=== PATIENT | female | born 1935 | race Hispanic/Latino ===

== ENCOUNTER 2017-11-09 22:40 | Emergency (ER) | payer OTHER ==
[~2017-11-09] VITALS: Ht 165.1 cm; Wt 63.0 kg
--- OUTSIDE RECORDS SUMMARY | 2017-11-09 22:43 | XMS REPORT ---
Author Author [facility] Address Unknown Phone Unavailable Care Team Providers Care Multiple Cut Off Saw Operator Name Role Phone QIANA GALINDO Unavailable Unavailable PAIGE HUANG Unavailable Unavailable Problems This patient has no known problems. Allergies, Adverse Reactions, Alerts This patient has no known allergies or adverse reactions. Medications This patient has no known medications. Results Test Description Test Time Test Comments Text Results Atomic Results Result Comments URINE CULTURE 2017-07-16 11:52:00 CULTURE (BEAKER) (test fwcz=0671) Amikacin (test code=1) Ampicillin + Sulbactam (test code=6) Aztreonam (test code=32) Cefepime (test code=51) Cefoxitin (test code=68) Ceftazidime (test code=27) Ceftriaxone (test code=52) Ertapenem (test code=38) Gentamicin (test code=18) Levofloxacin (test code=22) Meropenem (test code=34) Nitrofurantoin (test code=23) Piperacillin + Tazobactam (test code=29) Tetracycline (test code=2) Tobramycin (test code=25) Trimethoprim + Sulfamethoxazole (test code=47) CULTURE (BEAKER) (test evia=4930) 40-49,000 col/mL Escherichia coli CULTURE (BEAKER) (test uncs=6815) <10,000 col/mL Escherichia coliof a second type <10,000 col/mL GRAM NEGATIVE KAMERON OF A SECOND TYPEPOCT-GLUCOSE [id number] 11 :41:00* Test Item Value Reference Range Comments POC-GLUCOSE METER (BEAKER) (test nxwy=7864) 298 mg/dL 70-110 TESTED AT [facility] [place] [address] POCT-GLUCOSE [id number] 06:06:00* Test Item Value Reference Range Comments POC-GLUCOSE METER (BEAKER) (test fqjy=7987) 95 mg/dL 70-110 TESTED AT [facility] [place] [address] LIPID [id number] 03:38:00* Test Item Value Reference Range Comments TRIGLYCERIDES (BEAKER) (test sgjp=593) 117 mg/dL Specimen moderately hemolyzed CHOLESTEROL (BEAKER) (test dnlo=770) 145 mg/dL Specimen moderately hemolyzed HDL CHOLESTEROL (BEAKER) (test htte=201) 31 mg/dL LDL CHOLESTEROL CALCULATED (BEAKER) (test pwtp=564) 91 mg/dL Triglyceride Reference Range: Low Risk <150 Borderline 150-199 High Risk 200-499 Very High Risk >=500Cholesterol Reference Range: Low Risk <200 Borderline 200-239 High Risk >240HDL Cholesterol Reference Range: Low Risk >=60 High Risk <40LDL Cholesterol Reference Range: Optimal <100 Near Optimal 100-129 Borderline 130-159 High 160-189 Very High >=190 FASTING FOR 12 [id number] 03:37:00* Test Item Value Reference Range Comments MAGNESIUM (BEAKER) (test iavk=980) 1.9 mg/dL 1.5-3.0 Specimen moderately hemolyzed FASTING FOR 12 [id number] 03:37:00* Test Item Value Reference Range Comments PHOSPHORUS (BEAKER) (test fkdm=593) 3.6 mg/dL 2.5-4.5 Specimen moderately hemolyzed FASTING FOR 12 HOURSBASIC METABOLIC [id number] 03:37:00* Test Item Value Reference Range Comments SODIUM (BEAKER) (test zusu=919) 136 meq/L 135-148 POTASSIUM (BEAKER) (test xukn=330) 4.2 meq/L 3.6-5.5 Specimen moderately hemolyzed CHLORIDE (BEAKER) (test tmve=021) 105 meq/L 98-106 CO2 (BEAKER) (test bdgy=113) 21 meq/L 20-29 BLOOD UREA NITROGEN (BEAKER) (test xbrm=678) 13 mg/dL 10-26 CREATININE (BEAKER) (test pltg=103) 0.87 mg/dL 0.50-1.20 Specimen moderately hemolyzed GLUCOSE RANDOM (BEAKER) (test ogzd=552) 98 mg/dL 70-110 CALCIUM (BEAKER) (test pnnt=306) 9.2 mg/dL 8.5-10.5 EGFR (BEAKER) (test yrqe=8730) 63 mL/min/1.73 sq m ESTIMATED GFR IS NOT ACCURATE CREATININE CLEARANCE IN PREDICTING GLOMERULAR FILTRATION RATE. ESTIMATED GFR IS NOT APPLICABLE FOR DIALYSIS PATIENTS. FASTING FOR 12 HOURSCREATINE KINASE (CK), TOTAL AND [id number] 03:35:00* Test Item Value Reference Range Comments CREATINE KINASE TOTAL (BEAKER) (test hjcc=957) 43 U/L 25-235 CREATINE KINASE-MB (BEAKER) (test bofc=326) 0.8 ng/mL 0.0-4.9 CREATINE KINASE-MB INDEX (BEAKER) (test yosp=497) 1.9 % CK-MB Reference Range:<5 Normal5-10 Borderline>10 AbnormalCoordinate with ED Blood Draw (8 hrs after that for first)TROPONIN [id number] 03:35:00* Test Item Value Reference Range Comments TROPONIN I (BEAKER) (test vxct=450) 0.02 ng/mL 0.00-0.15 Troponin I (TnI) levels must be interpreted in the context of the presenting symptoms and the clinical findings. Elevated TnI levels indicate myocardial damage, but are not specific for ischemic heart disease. Elevated TnI levels are seen in patients with other cardiac conditions (including myocarditis and congestive heart failure), and slight TnI elevations occur in patients with other conditions, including sepsis, renal failure, acidosis, acute neurological disease, and persistent tachyarrhythmia.Coordinate with ED Blood Draw (8 hrs after that for first)CBC W/PLT COUNT & AUTO [id number] 03:07:00* Test Item Value Reference Range Comments WHITE BLOOD CELL COUNT (BEAKER) (test bihh=991) 7.0 K/ L 4.0-10.0 RED BLOOD CELL COUNT (BEAKER) (test cels=765) 3.22 M/ L 4.00-5.00 HEMOGLOBIN (BEAKER) (test zidy=810) 10.0 GM/DL 12.0-15.0 HEMATOCRIT (BEAKER) (test oayz=805) 28.7 % 36.0-45.0 MEAN CORPUSCULAR VOLUME (BEAKER) (test dozr=095) 89.1 fL 82.0-99.0 MEAN CORPUSCULAR HEMOGLOBIN (BEAKER) (test ajqq=214) 31.1 pg 27.0-33.0 MEAN CORPUSCULAR HEMOGLOBIN CONC (BEAKER) (test snpu=861) 34.8 GM/DL 32.0- 36.0 RED CELL DISTRIBUTION WIDTH (BEAKER) (test ghox=742) 13.1 % 10.3-14.2 PLATELET COUNT (BEAKER) (test ckvh=249) 293 K/CU MM 150-430 MEAN PLATELET VOLUME (BEAKER) (test ngly=618) 10.5 fL 6.5-10.5 NUCLEATED RED BLOOD CELLS (BEAKER) (test bvsm=823) 0 /100 WBC 0-0 NEUTROPHILS RELATIVE PERCENT (BEAKER) (test xqxz=294) 54 % LYMPHOCYTES RELATIVE PERCENT (BEAKER) (test ksiv=784) 32 % MONOCYTES RELATIVE PERCENT (BEAKER) (test lktw=852) 9 % EOSINOPHILS RELATIVE PERCENT (BEAKER) (test psxq=569) 4 % BASOPHILS RELATIVE PERCENT (BEAKER) (test gmje=582) 0 % NEUTROPHILS ABSOLUTE COUNT (BEAKER) (test kikr=777) 3.80 K/ L 1.80-8.00 LYMPHOCYTES ABSOLUTE COUNT (BEAKER) (test ztqr=900) 2.22 K/ L 1.48-4.50 MONOCYTES ABSOLUTE COUNT (BEAKER) (test wfys=970) 0.63 K/ L 0.00-1.30 EOSINOPHILS ABSOLUTE COUNT (BEAKER) (test gnle=595) 0.31 K/ L 0.00-0.50 BASOPHILS ABSOLUTE COUNT (BEAKER) (test dpfk=636) 0.03 K/ L 0.00-0.20 POCT-GLUCOSE [id number] 22:29:00* Test Item Value Reference Range Comments POC-GLUCOSE METER (BEAKER) (test njsk=7415) 199 mg/dL 70-110 TESTED AT [facility] [address] [place] [address] CREATINE KINASE (CK), TOTAL AND [id number] 20:58:00* Test Item Value Reference Range Comments CREATINE KINASE TOTAL (BEAKER) (test stvu=345) 52 U/L 25-235 CREATINE KINASE-MB (BEAKER) (test tsrb=314) 0.9 ng/mL 0.0-4.9 CREATINE KINASE-MB INDEX (BEAKER) (test uiqy=138) 1.7 % CK-MB Reference Range:<5 Normal5-10 Borderline>10 AbnormalCoordinate with ED Blood Draw (8 hrs after that for first)TROPONIN [id number] 20:58:00* Test Item Value Reference Range Comments TROPONIN I (BEAKER) (test wmcu=245) 0.01 ng/mL 0.00-0.15 Troponin I (TnI) levels must be interpreted in the context of the presenting symptoms and the clinical findings. Elevated TnI levels indicate myocardial damage, but are not specific for ischemic heart disease. Elevated TnI levels are seen in patients with other cardiac conditions (including myocarditis and congestive heart failure), and slight TnI elevations occur in patients with other conditions, including sepsis, renal failure, acidosis, acute neurological disease, and persistent tachyarrhythmia.Coordinate with ED Blood Draw (8 hrs after that for first)POCT-GLUCOSE [id number] 16:47:00* Test Item Value Reference Range Comments POC-GLUCOSE METER (BEAKER) (test bnfz=9617) 234 mg/dL 70-110 TESTED AT [facility] [place] [address] CREATINE KINASE (CK), TOTAL AND [id number] 15:51:00* Test Item Value Reference Range Comments CREATINE KINASE TOTAL (BEAKER) (test vgjy=431) 59 U/L 25-235 CREATINE KINASE-MB (BEAKER) (test thmq=949) 1.2 ng/mL 0.0-4.9 CREATINE KINASE-MB INDEX (BEAKER) (test mkxz=625) 2.0 % CK-MB Reference Range:<5 Normal5-10 Borderline>10 AbnormalCoordinate with ED Blood Draw (8 hrs after that for first)TROPONIN [id number] 15:51:00* Test Item Value Reference Range Comments TROPONIN I (BEAKER) (test vxqj=069) 0.02 ng/mL 0.00-0.15 Troponin I (TnI) levels must be interpreted in the context of the presenting symptoms and the clinical findings. Elevated TnI levels indicate myocardial damage, but are not specific for ischemic heart disease. Elevated TnI levels are seen in patients with other cardiac conditions (including myocarditis and congestive heart failure), and slight TnI elevations occur in patients with other conditions, including sepsis, renal failure, acidosis, acute neurological disease, and persistent tachyarrhythmia.Coordinate with ED Blood Draw (8 hrs after that for first)POCT-GLUCOSE [id number] 11:30:00* Test Item Value Reference Range Comments POC-GLUCOSE METER (BEAKER) (test yanc=6264) 189 mg/dL 70-110 TESTED AT [facility] [place] [address] URINALYSIS W/ [id number] 10:21:00* Test Item Value Reference Range Comments COLOR (BEAKER) (test ushj=635) Yellow CLARITY (BEAKER) (test iivb=387) Clear SPECIFIC GRAVITY UA (BEAKER) (test bqbi=303) <= 1.001-1.035 PH UA (BEAKER) (test vddj=986) 6.5 5.0-8.0 PROTEIN UA (BEAKER) (test wyfs=482) Negative Negative GLUCOSE UA (BEAKER) (test ktzu=716) Negative Negative KETONES UA (BEAKER) (test zrwc=516) Negative Negative BILIRUBIN UA (BEAKER) (test gmxm=905) Negative Negative BLOOD UA (BEAKER) (test xxfn=721) Negative Negative NITRITE UA (BEAKER) (test babj=071) Negative Negative LEUKOCYTE ESTERASE UA (BEAKER) (test ofxz=820) Negative Negative UROBILINOGEN UA (BEAKER) (test dkbm=756) 0.2 mg/dL 0.2-1.0 BACTERIA (BEAKER) (test uduo=053) Occasional RBC UA-MANUAL (BEAKER) (test rbny=8034) None Seen /HPF WBC UA-MANUAL (BEAKER) (test aubs=9425) <5 /HPF SQUAMOUS EPITHELIAL MANUAL (BEAKER) (test oxes=2687) <5 /HPF SOURCE(BEAKER) (test krds=4196) [id number] 08:57:00* Test Item Value Reference Range Comments PROTIME (BEAKER) (test iorj=240) 10.4 seconds 9.8-12.0 INR (BEAKER) (test pkro=205) 1.0 <=5.9 PARTIAL THROMBOPLASTIN TIME (BEAKER) (test dclq=716) 29.6 seconds 25.8-34.5 RECOMMENDED COUMADIN/WARFARIN INR THERAPY RANGESSTANDARD DOSE: 2.0 - 3.0 Includes: PROPHYLAXIS for venous thrombosis, systemic embolization; TREATMENT for venous thrombosis and/or pulmonary embolus.HIGH RISK: Target INR is 2.5-3.5 for patients with mechanical heart valves.CREATINE KINASE (CK), TOTAL AND [id number] 08:54:00* Test Item Value Reference Range Comments CREATINE KINASE TOTAL (BEAKER) (test vkjb=808) 88 U/L 25-235 CREATINE KINASE-MB (BEAKER) (test cekn=252) 1.3 ng/mL 0.0-4.9 CREATINE KINASE-MB INDEX (BEAKER) (test mvvm=258) 1.5 % CK-MB Reference Range:<5 Normal5-10 Borderline>10 AbnormalTROPONIN [id number] 08:54:00* Test Item Value Reference Range Comments TROPONIN I (BEAKER) (test wbsu=182) 0.01 ng/mL 0.00-0.15 Troponin I (TnI) levels must be interpreted in the context of the presenting symptoms and the clinical findings. Elevated TnI levels indicate myocardial damage, but are not specific for ischemic heart disease. Elevated TnI levels are seen in patients with other cardiac conditions (including myocarditis and congestive heart failure), and slight TnI elevations occur in patients with other conditions, including sepsis, renal failure, acidosis, acute neurological disease, and persistent tachyarrhythmia.[id number] 08:48:00* Test Item Value Reference Range Comments PHOSPHORUS (BEAKER) (test wocb=168) 2.0 mg/dL 2.5-4.5 [id number] 08:48:00* Test Item Value Reference Range Comments MAGNESIUM (BEAKER) (test slwv=806) 1.6 mg/dL 1.5-3.0 COMPREHENSIVE METABOLIC [id number] 08:48:00* Test Item Value Reference Range Comments TOTAL PROTEIN (BEAKER) (test furv=952) 7.4 gm/dL 6.0-8.5 ALBUMIN (BEAKER) (test cbcm=7937) 3.6 g/dL 3.5-5.0 ALKALINE PHOSPHATASE (BEAKER) (test yocg=080) 71 U/L 30-115 BILIRUBIN TOTAL (BEAKER) (test luhy=004) 0.5 mg/dL 0.1-1.2 SODIUM (BEAKER) (test mhfk=271) 135 meq/L 135-148 POTASSIUM (BEAKER) (test mfao=650) 3.5 meq/L 3.6-5.5 CHLORIDE (BEAKER) (test vece=753) 101 meq/L 98-106 CO2 (BEAKER) (test ygog=114) 23 meq/L 20-29 BLOOD UREA NITROGEN (BEAKER) (test qtrh=746) 8 mg/dL 10-26 CREATININE (BEAKER) (test jjko=264) 0.89 mg/dL 0.50-1.20 GLUCOSE RANDOM (BEAKER) (test zuei=874) 201 mg/dL 70-110 CALCIUM (BEAKER) (test xqjy=033) 9.4 mg/dL 8.5-10.5 AST (SGOT) (BEAKER) (test eixp=446) 14 U/L 5-40 ALT (SGPT) (BEAKER) (test oxbd=809) 15 U/L 5-50 EGFR (BEAKER) (test ywal=0186) 61 mL/min/1.73 sq m ESTIMATED GFR IS NOT ACCURATE CREATININE CLEARANCE IN PREDICTING GLOMERULAR FILTRATION RATE. ESTIMATED GFR IS NOT APPLICABLE FOR DIALYSIS PATIENTS. CBC W/PLT COUNT & AUTO [id number] 08:30:00* Test Item Value Reference Range Comments WHITE BLOOD CELL COUNT (BEAKER) (test zaws=033) 8.1 K/ L 4.0-10.0 RED BLOOD CELL COUNT (BEAKER) (test qmct=445) 3.56 M/ L 4.00-5.00 HEMOGLOBIN (BEAKER) (test ptqt=171) 11.0 GM/DL 12.0-15.0 HEMATOCRIT (BEAKER) (test fbxw=149) 31.5 % 36.0-45.0 MEAN CORPUSCULAR VOLUME (BEAKER) (test ovwu=310) 88.5 fL 82.0-99.0 MEAN CORPUSCULAR HEMOGLOBIN (BEAKER) (test usrn=642) 30.9 pg 27.0-33.0 MEAN CORPUSCULAR HEMOGLOBIN CONC (BEAKER) (test glnl=537) 34.9 GM/DL 32.0- 36.0 RED CELL DISTRIBUTION WIDTH (BEAKER) (test xznn=316) 13.1 % 10.3-14.2 PLATELET COUNT (BEAKER) (test fxub=752) 282 K/CU MM 150-430 MEAN PLATELET VOLUME (BEAKER) (test louw=224) 11.0 fL 6.5-10.5 NUCLEATED RED BLOOD CELLS (BEAKER) (test phmk=363) 0 /100 WBC 0-0 NEUTROPHILS RELATIVE PERCENT (BEAKER) (test xbel=651) 62 % LYMPHOCYTES RELATIVE PERCENT (BEAKER) (test tuod=181) 22 % MONOCYTES RELATIVE PERCENT (BEAKER) (test ksic=037) 10 % EOSINOPHILS RELATIVE PERCENT (BEAKER) (test vqai=486) 6 % BASOPHILS RELATIVE PERCENT (BEAKER) (test unlf=839) 1 % NEUTROPHILS ABSOLUTE COUNT (BEAKER) (test fsed=406) 5.05 K/ L 1.80-8.00 LYMPHOCYTES ABSOLUTE COUNT (BEAKER) (test jxdj=280) 1.79 K/ L 1.48-4.50 MONOCYTES ABSOLUTE COUNT (BEAKER) (test xpqs=090) 0.77 K/ L 0.00-1.30 EOSINOPHILS ABSOLUTE COUNT (BEAKER) (test pisk=468) 0.45 K/ L 0.00-0.50 BASOPHILS ABSOLUTE COUNT (BEAKER) (test srit=642) 0.04 K/ L 0.00-0.20 RAD, CHEST, 1 VIEW, NON [id number] 08:29:00Reason for exam:->CHEST PAINReason for exam:->ATRIAL FIBRILLATIONShould this be performed at the bedside ?->YesFINAL REPORT Chest, one view HISTORY: Chest pain COMPARISON: 01/08/2017 DISCUSSION: Unchanged bilateral interstitial prominence. No new focal consolidation. Cardiomediastinal silhouette is unremarkable. Mildly ectatic and tortuous thoracic aorta. Atherosclerotic calcifications in the aortic arch. No acute osseous abnormality. No large pleural effusion or pneumothorax. Degenerative changes in the thoracic spine. IMPRESSION: No acute cardiopulmonary abnormality. Signed: Saroj Duvall MDReport Verified Date/Time: 07/13/2017 08:29:54 Reading Location: [address] Body Reading Room TINE KINASE (CK), TOTAL AND [id number] 17:01:00* Test Item Value Reference Range Comments CREATINE KINASE TOTAL (BEAKER) (test oisu=220) 60 U/L 25-235 CREATINE KINASE-MB (BEAKER) (test vsqc=641) 1.3 ng/mL 0.0-4.9 CREATINE KINASE-MB INDEX (BEAKER) (test vjys=639) 2.2 % CK-MB Reference Range:<5 Normal5-10 Borderline>10 AbnormalTROPONIN [id number] 17:01:00* Test Item Value Reference Range Comments TROPONIN I (BEAKER) (test vvkp=886) 0.02 ng/mL 0.00-0.15 Troponin I (TnI) levels must be interpreted in the context of the presenting symptoms and the clinical findings. Elevated TnI levels indicate myocardial damage, but are not specific for ischemic heart disease. Elevated TnI levels are seen in patients with other cardiac conditions (including myocarditis and congestive heart failure), and slight TnI elevations occur in patients with other conditions, including sepsis, renal failure, acidosis, acute neurological disease, and persistent tachyarrhythmia.B-TYPE NATRIURETIC FACTOR (BNP) 16:59:00* Test Item Value Reference Range Comments B-TYPE NATRIURETIC PEPTIDE (BEAKER) (test xark=965) 106 pg/mL 0-100 [id number] 16:53:00* Test Item Value Reference Range Comments LIPASE (BEAKER) (test hjhw=501) 9 U/L 6-51 BASIC METABOLIC [id number] 16:53:00* Test Item Value Reference Range Comments SODIUM (BEAKER) (test ydjp=324) 126 meq/L 135-148 POTASSIUM (BEAKER) (test brky=814) 4.9 meq/L 3.6-5.5 CHLORIDE (BEAKER) (test jhbi=701) 97 meq/L 98-106 CO2 (BEAKER) (test ryae=646) 20 meq/L 20-29 BLOOD UREA NITROGEN (BEAKER) (test speb=689) 16 mg/dL 10-26 CREATININE (BEAKER) (test rhip=588) 1.15 mg/dL 0.50-1.20 GLUCOSE RANDOM (BEAKER) (test svgj=974) 154 mg/dL 70-110 CALCIUM (BEAKER) (test oqkf=619) 9.1 mg/dL 8.5-10.5 EGFR (BEAKER) (test gmrh=7315) 45 mL/min/1.73 sq m ESTIMATED GFR IS NOT ACCURATE CREATININE CLEARANCE IN PREDICTING GLOMERULAR FILTRATION RATE. ESTIMATED GFR IS NOT APPLICABLE FOR DIALYSIS PATIENTS. HEPATIC FUNCTION [id number] 16:53:00* Test Item Value Reference Range Comments TOTAL PROTEIN (BEAKER) (test frta=366) 7.9 gm/dL 6.0-8.5 ALBUMIN (BEAKER) (test ebio=0957) 4.5 g/dL 3.5-5.0 BILIRUBIN TOTAL (BEAKER) (test tjkq=224) 0.6 mg/dL 0.1-1.2 BILIRUBIN DIRECT (BEAKER) (test lgec=204) 0.2 mg/dL 0.0-0.4 ALKALINE PHOSPHATASE (BEAKER) (test qzdp=167) 49 U/L 30-115 AST (SGOT) (BEAKER) (test phbb=274) 21 U/L 5-40 ALT (SGPT) (BEAKER) (test mgfx=825) 20 U/L 5-50 CBC W/PLT COUNT & AUTO [id number] 16:41:00* Test Item Value Reference Range Comments WHITE BLOOD CELL COUNT (BEAKER) (test ndjy=524) 8.2 K/ L 4.0-10.0 RED BLOOD CELL COUNT (BEAKER) (test kuen=248) 3.83 M/ L 4.00-5.00 HEMOGLOBIN (BEAKER) (test qbjn=453) 11.7 GM/DL 12.0-15.0 HEMATOCRIT (BEAKER) (test ahmy=035) 33.6 % 36.0-45.0 MEAN CORPUSCULAR VOLUME (BEAKER) (test bjek=742) 87.7 fL 82.0-99.0 MEAN CORPUSCULAR HEMOGLOBIN (BEAKER) (test bfok=225) 30.5 pg 27.0-33.0 MEAN CORPUSCULAR HEMOGLOBIN CONC (BEAKER) (test ecnr=093) 34.8 GM/DL 32.0- 36.0 RED CELL DISTRIBUTION WIDTH (BEAKER) (test pfpm=909) 12.8 % 10.3-14.2 PLATELET COUNT (BEAKER) (test gtxx=417) 292 K/CU MM 150-430 MEAN PLATELET VOLUME (BEAKER) (test wkra=457) 11.4 fL 6.5-10.5 NEUTROPHILS RELATIVE PERCENT (BEAKER) (test anbz=200) 72 % LYMPHOCYTES RELATIVE PERCENT (BEAKER) (test apna=805) 19 % MONOCYTES RELATIVE PERCENT (BEAKER) (test ckui=332) 7 % EOSINOPHILS RELATIVE PERCENT (BEAKER) (test jkfr=244) 2 % BASOPHILS RELATIVE PERCENT (BEAKER) (test zsdb=240) 0 % NEUTROPHILS ABSOLUTE COUNT (BEAKER) (test zgtv=489) 5.92 K/ L 1.50-10.30 LYMPHOCYTES ABSOLUTE COUNT (BEAKER) (test vrzd=789) 1.60 K/ L 1.48-4.50 MONOCYTES ABSOLUTE COUNT (BEAKER) (test nnwy=927) 0.57 K/ L 0.00-1.30 EOSINOPHILS ABSOLUTE COUNT (BEAKER) (test atvf=209) 0.12 K/ L 0.00-0.50 BASOPHILS ABSOLUTE COUNT (BEAKER) (test jcdt=713) 0.03 K/ L 0.00-0.20
[2017-11-09] MEDS ORDERED: CLONIDINE HCL 0.1 MG TAB PO ONE (23:00)
[2017-11-09] MEDS ORDERED: MECLIZINE HCL 12.5 MG TAB PO ONE (23:00)
[2017-11-09 23:02] LABS: BASOPHILS % 0.3 % (0.0-1.0); EOSINOPHILS % 0.3 % (0.0-6.0); HEMATOCRIT 31.9 % (34.2-44.1); HEMOGLOBIN 10.8 g/dL (12.0-16.0); LYMPHOCYTES # (AUTO) 1.9 (1.0-3.2); LYMPHOCYTES % 18.7 % (18.0-39.1); MEAN CORPUSCULAR HEMOGLOBIN 29.3 pg (28-32); MEAN CORPUSCULAR HGB CONC 33.9 g/dL (31-35); MEAN CORPUSCULAR VOLUME 86.4 fL (81-99); MONOCYTES # (AUTO) 0.6 (0.2-0.8); NEUTROPHILS # (AUTO) 7.6 (2.1-6.9); NEUTROPHILS % 74.3 % (38.7-80.0); PLATELET COUNT 253 x10e3/uL (140-360); RED BLOOD COUNT 3.69 x10e6/uL (3.6-5.1); RED CELL DISTRIBUTION WIDTH 13.7 % (11.7-14.4)
[2017-11-09 23:20] LABS: ALANINE AMINOTRANSFERASE 11 IU/L (0-55); ALBUMIN 3.9 g/dL (3.5-5.0); ALKALINE PHOSPHATASE 57 IU/L (40-150); ANION GAP 15.8 mmol/L (8-16); BLOOD UREA NITROGEN 17 mg/dL (7-26); BUN/CREATININE RATIO 18 (6-25); CALCIUM 9.5 mg/dL (8.4-10.2); CARBON DIOXIDE 22 mmol/L (22-29); CHLORIDE 99 mmol/L (98-107); CREATINE KINASE 55 IU/L (29-168); CREATININE, SERUM 0.93 mg/dL (0.57-1.11); EST GLOMERULAR FILTRATION RATE 58 ML/MIN (60-); GLUCOSE 181 mg/dL (74-118); POTASSIUM 3.8 mmol/L (3.5-5.1); SODIUM 133 mmol/L (136-145)
[2017-11-09 23:27] LABS: BILIRUBIN,URINE NEGATIVE (NEGATIVE); KETONES,URINE NEGATIVE (NEGATIVE); LEUKOCYTE ESTERASE ,URINE NEGATIVE (NEGATIVE); NITRITE,URINE NEGATIVE (NEGATIVE); PROTEIN,URINE DIPSTICK NEGATIVE (NEGATIVE); URINE UROBILINOGEN 0.2 mg/dL (0.2 - 1)
[2017-11-09 23:31] LABS: CLARITY,URINE CLEAR (CLEAR); COLOR,URINE STRAW (YELLOW)
[2017-11-09 23:39] LABS: EPITHELIAL CELLS,URINE RARE /LPF; RBC,URINE 0-5 /HPF (0-5); WBC,URINE (MAN) 0-5 /HPF (0-5)
--- NOTE | 2017-11-10 00:06 | Diagnostic Imaging Report ---
EXAMINATION: Head CT HISTORY: Dizziness, UTI COMPARISON: None. TECHNIQUE: Multidetector axial images were obtained without contrast from the foramen magnum to the vertex . The images were reconstructed using brain and bone algorithms. Thin section brain images were reformatted into coronal and sagittal planes. Intravenous contrast: None. Motion/streaking artifact limits the evaluation of the skull base and posterior cranial fossa. FINDINGS: Parenchyma: 1. Scatter and moderate confluent white matter hypodensities, most likely nonspecific chronic microvascular ischemic changes. 2. Prominent cortical subcortical encephalomalacia in the bilateral posterior/inferior cerebellar hemispheres, likely sequela from remote infarcts in the bilateral PICA vascular distribution. 3. Small cortical subcortical encephalomalacia in the left postcentral gyrus and right superior cerebellum, likely sequela from remote small cortical infarcts. 4. No mass or hemorrhage. No CT evidence of acute territorial vascular insult. Extra-axial spaces:No abnormal density. No extra-axial fluid collections Brain volume: Normal for age. Ventricles: No hydrocephalus or displacement. Arteries: No density suggestive of thrombus. Dural sinuses: No abnormal density. Extra-axial spaces: No abnormal density. Foramen magnum: No mass, Chiari malformation, or basilar invagination. Sella: No obvious mass. Paranasal/mastoid sinuses: Imaged portions unremarkable. Skull/Scalp: No lytic or blastic lesions. No fractures. Bone defect in the right posterior temporal region may represent a surgical jessy hole versus sequela from prior trauma. IMPRESSION: 1. No acute intracranial hemorrhage or cortical infarcts. 2. Moderate confluent chronic microvascular ischemic changes. 3. 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 Signed by: Dr. Mila Lugo M.D. on 11/10/2017 12:03 AM
[2017-11-10] MEDS ORDERED: MECLIZINE HCL25 MG PO (00:26)
[2017-11-10 00:27] VITALS: BP 137/55
[2017-11-10] MEDS ORDERED: B COMPLEX1 EACH PO (01:27)
[2017-11-10] MEDS ORDERED: GLIMEPIRIDE2 MG PO (01:27)
[2017-11-10] MEDS ORDERED: ASPIRIN325 MG PO (01:27)
[2017-11-10] MEDS ORDERED: CO Q-10200 MG PO (01:27)
[2017-11-10] MEDS ORDERED: VITAMIN D32000 UNIT PO (01:27)
[2017-11-10] MEDS ORDERED: LOSARTAN POTAS100 MG PO (01:27)
[2017-11-10] MEDS ORDERED: AMLODIPINE BESYL5 MG PO (01:27)
[2017-11-10] MEDS ORDERED: AZO CRANBERRY1 EACH PO (01:27)
[2017-11-10] MEDS ORDERED: METFORMIN HCL500 M2 PO (01:27)
[2017-11-10] MEDS ORDERED: ALENDRONATE SOD35 MG PO (01:27)
== END 2017-11-10 01:30 | disposition home or self-care (01) ==
LOC: ER 22:40
DX: R42 Dizziness and giddiness (principal); H81.11 Benign paroxysmal vertigo, right ear; I10 Essential (primary) hypertension
CPT/HCPCS: 36415; 70450; 80053; 81001; 82550; 82553; 84484; 85025; 87086; 93005; 99284